=== PATIENT | male | born 1965 | race Caucasian/White ===

== ENCOUNTER 2025-06-27 03:55 | Inpatient (IN) ==
--- NOTE | 2025-06-27 04:06 | Emergency Department Note ---
Impression & Plan ST elevation (STEMI) myocardial infarction to the Visor Installer with Dr. Johnson admit to the [facility] Hospitalist ED Provider Note NAME: KEAGAN DEL ROSARIO Sr AGE: 59 SEX: Male INFORMANT: Patient ED PROVIDER(S): Maria G Woo DO CHIEF COMPLAINT: left-sided chest pain-STEMI PLAN: Disposition: to the [facility] with Dr. Johnson MEDICAL DECISION MAKING: This is a 59-year-old male patient who developed left-sided chest pain which woke him from sleep. The pain began to radiate up the left side of his neck and into his left arm. Presented to [facility] emergency department where they diagnosed a STEMI. They had initially plan to transfer the patient to [facility] but due to the weather, they were unable to fly. Due to the close proximity to our Visor Installer, they made arrangements to have the patient transferred here by speaking with me and Dr. Johnson. Patient received oral aspirin, IV morphine and nitroglycerin paste was placed. He was started on a heparin drip. Upon presentation to the emergency department Here as a heart alert, the patient continues to have ST segment elevation in the inferior leads with reciprocal changes. He rates his discomfort as a 4/10. a complete history and physical was performed. patient remained hemodynamically stable. Portable chest x-ray was performed which showed a narrow mediastinum and no acute pulmonary abnormality. Laboratory studies revealed no leukocytosis or anemia. Glucose was normal. Renal function was normal. Lipase was slightly elevated at 170 and troponin is still pending. Care/management discussed with: Dr. Johnson in the associate manager affiliate marketing as well as the [facility] Triage Nursing notes: reviewed and agree with them. Vital Signs: reviewed and remarkable for hypertension Additional History obtained from: transferring ALS crew Prior/ Outside/ External records reviewed: I did review the patient's records in [facility] as well as other previous visits here to our hospital. Differential Diagnosis: STEMI, NSTEMI, aortic dissection Diagnostics, independently interpreted by me: ECG: normal sinus rhythm at a rate of [address] segment elevation in leads II, 3, aVF. The patient has ST segment depression in lead aVL. There is no ectopy. Cardiac Monitoring: Normal sinus rhythm at a rate of 93 Imaging studies: portable chest x-ray: Narrow mediastinum with no obvious pneumothorax or pulmonary pathology as per my independent interpretation. HPI: 59 year old Male arrives for evaluation of Left-sided chest pain. patient who developed left-sided chest pain which woke him from sleep. The pain began to radiate up the left side of his neck and into his left arm. Presented to [facility] emergency department where they diagnosed a STEMI. They had initially plan to transfer the patient to [facility] but due to the weather, they were unable to fly. Due to the close proximity to our Visor Installer, they made arrangements to have the patient transferred here by speaking with me and Dr. Johnson. Patient received oral aspirin, IV morphine and nitroglycerin paste was placed. He was started on a heparin drip. PAST MEDICAL HISTORY: See Below, PAST SURGICAL HISTORY: See Below, SOCIAL HISTORY: See Below, HOME MEDICATIONS: see list ALLERGIES: see list VITALS: See Below PHYSICAL EXAMINATION: HEENT: Head - normocephalic and atraumatic. Pupils are equal, round, and reactive to light. Extraocular eye muscles are intact, and sclera are anicteric. Nose - moist nasal mucosa without discharge. Mouth - moist buccal mucosa. Oropharynx is nonerythematous and there is no tonsillar exudate or edema noted. Neck: Supple; no JVD Or cervical lymphadenopathy Heart: Regular rate and rhythm. There is a normal S1 and S2 with no murmurs, clicks, or gallops appreciated. Lungs: Clear to auscultation bilaterally with no wheezes, rales, or rhonchi. Abdomen: Soft, completely nontender, nondistended, with good bowel sounds. There are no palpable pulsatile masses or hepatosplenomegaly. There is no guarding, rigidity, or rebound noted. Extremities: No evidence of cyanosis, clubbing, or edema. There are easily palpable peripheral pulses. Skin: warm and dry with good turgor and no rashes. Emergency Department course: The patient was evaluated in room A-1 as a heart alert. A complete history and physical was performed. I looked through the records from [facility]. I discussed the case at the bedside with Dr. Johnson. An order was placed for continuous cardiac monitoring. The patient was in a normal sinus rhythm at a rate of 93. Twelve-lead EKG was obtained which showed evidence of a STEMI. Patient rated his pain as a 4/10. Laboratory studies were drawn. Portable chest x-ray was obtained. I discussed the case with the [facility] Hospitalist. He will go to the Visor Installer with Dr. Johnson I have personally spent greater than 30 minutes of critical care time in the direct management of this patient. This includes bedside care, interpretation of diagnostic studies, and testing, discussion with consultants, patient, and family members, and other required patient management activities. This 30 minutes is in excess of all separately billable procedures. I discussed the findings and plan with the patient. Past Med/Surg History Problem List ST elevation (STEMI) myocardial infarction (Acute) Abdominal pain Eczema Elevated blood sugar HTN (hypertension) Nicotine dependence with current use Thoracic and lumbosacral neuritis (Chronic) Status post lumbar surgery (Chronic) Smokes 1/2 pack per day (Chronic) Myalgia (Chronic) Lumbar radiculopathy (Chronic) Hyperlipidemia (Chronic) Gastritis (Chronic) Elevated serum creatinine (Chronic) Medical History Carpal tunnel syndrome Surgical History History of arthroscopy of knee History of carpal tunnel release History of back surgery Family History Mother Cancer UTERUS Coronary heart disease Hypertension Myocardial infarction Stroke Grandfather Colonic polyp Coronary heart disease Diabetes Myocardial infarction Stroke Father , AGE 41 Coronary heart disease Myocardial infarction Sudden MASSIVE HEARTATTACK Denies family history of Rheumatoid arthritis SIDS (sudden infant syndrome) Ovarian cancer Prostate cancer Deep vein thrombosis Osteoporosis Cerebral aneurysm Alzheimer disease Bipolar disorder Clotting disorder Crohn's disease Dementia Depression Heart disease Kidney disease Osteoarthritis Breast cancer Schizophrenia Congenital kidney disease Gestational diabetes Lung cancer COPD (chronic obstructive pulmonary disease) Colorectal cancer Pulmonary embolism Lung disease Ulcerative colitis Asthma Cystic kidney disease Social History Smoking Status: Current every day smoker Tobacco Type: Cigarettes Age Started Using Tobacco: 13; packs per day: 0.5; Cigarettes Per Day: 1/2 pack per day; Second Hand Exposure: Yes; Do You Dip or Chew Tobacco: No; Hx Alcohol Use: No Hx Substance Use: No Preferred Language: Zambian Communication Ability: Effective Visual Impairment: No Limitations Hearing Ability: Normal Blow Pit Operator Required: No Beliefs That Will Affect Care: None marital status: Current Living Situation: Spouse and Family Current Living Situation Comment: , 2 CHILDREN current occupational status: employed current occupation: [employer] Other Information That Helps Us Care for You: No Feels Safe at Home: Yes Safety Concerns: Feels Safe At This Time Childhood Exposure to Second-Hand Smoke: Yes caffeine: Yes Dental Care, Regularly: No Physical Activity Frequency: Daily Seatbelt Use: always Sunscreen Use: No Assistive Devices: Glasses Allergies Allergies Allergy/AdvReac Type Severity Reaction Status Date / Time naproxen Allergy Verified 03/22/25 08:26 rofecoxib [From Vioxx] Allergy Verified 03/22/25 08:26 tomato Allergy Verified 03/22/25 08:26 Home Meds Previous Rx's Medication Instructions Recorded albuterol sulfate 90 mcg/actuation 2 puff inhalation QID PRN 05/04/24 aerosol inhaler (Ventolin HFA) shortness of breath #6.7 grams omega-3 acid ethyl esters 1 gram 1 cap PO DAILY #90 caps 11/04/24 capsule ondansetron 4 mg disintegrating 4 mg PO Q8H PRN nausea and 11/08/24 tablet vomiting #10 tabs cyclobenzaprine 10 mg tablet 10 mg PO BID #60 tabs 11/09/24 fexofenadine 180 mg tablet 180 mg PO DAILY #90 tabs 11/09/24 ([facility]) triamcinolone acetonide 0.1 % 1 applic topical BID #30 grams 11/09/24 topical cream lisinopril 5 mg tablet 5 mg PO DAILY #90 tabs 12/09/24 pantoprazole 40 mg tablet,delayed 40 mg PO BID #180 tabs 02/01/25 release fenofibrate nanocrystallized 48 mg 48 mg PO DAILY #90 tabs 02/24/25 tablet etodolac 400 mg tablet (Lodine) 400 mg PO ONCE #60 tabs 05/09/25 lorazepam 0.5 mg tablet 0.5 mg PO TID PRN anxiety #90 tabs 05/10/25 hydrocodone 5 mg-acetaminophen 325 1 tab PO Q6H PRN pain #60 tabs 06/10/25 mg tablet Results & Data (ED) Vital Signs Vital Signs - 24 hr 06/27/25 03:52 06/27/25 03:57 06/27/25 04:02 Temperature 36.8 C Temperature Source Oral Pulse Rate 91 H 93 H Pulse Rate [Apical] Pulse Rate [Finger] Pulse Rhythm [Apical] Pulse Strength [Apical] Respiratory Rate 16 Respiratory Effort / Characteristics Non-Labored Spontaneous Respiratory Depth Normal Respiratory Pattern Regular Blood Pressure 144/108 H Blood Pressure [Left Arm] Blood Pressure Mean 120 Blood Pressure Mean [Left Arm] Blood Pressure Position [Left Arm] Pulse Oximetry 97 Oxygen Delivery Method Room Air Room Air Sepsis Recent Fever Within 48 Hours No Sepsis New/Unexplained Change in Mental Status No Sepsis Action Taken by Nursing No Action Required 06/27/25 04:02 06/27/25 05:20 06/27/25 05:31 Temperature 36.6 C Temperature Source Oral Pulse Rate Pulse Rate [Apical] 85 Pulse Rate [Finger] 86 Pulse Rhythm [Apical] Regular Pulse Strength [Apical] Normal Respiratory Rate 20 15 Respiratory Effort / Characteristics Non-Labored Spontaneous Non-Labored Spontaneous Respiratory Depth Normal Normal Respiratory Pattern Regular Blood Pressure Blood Pressure [Left Arm] 133/96 129/98 Blood Pressure Mean Blood Pressure Mean [Left Arm] 108 108 Blood Pressure Position [Left Arm] Lying Pulse Oximetry 97 97 97 Oxygen Delivery Method Room Air Room Air Room Air Sepsis Recent Fever Within 48 Hours Sepsis New/Unexplained Change in Mental Status Sepsis Action Taken by Nursing Laboratory Data 06/27/25 06:02 06/27/25 04:10 Lab Results 06/27/25 06/27/25 06/27/25 Range/Units 04:10 04:12 04:29 WBC RBC Hgb POC Hgb 14.6 (14.0-18.0) g/dl Hct POC Hct 43 (42-52) % MCV MCH MCHC RDW Std Deviation RDW Coeff of Bailee Plt Count MPV Immature Gran % (Auto) Neut % (Auto) Lymph % (Auto) [place] % (Auto) Eos % (Auto) Baso % (Auto) Neut # (Auto) Lymph # (Auto) [place] # (Auto) Eos # (Auto) Baso # (Auto) Immature Gran # (Auto) Absolute Nucleated RBC Nucleated RBC % (auto) Neutrophils % (Manual) Band Neutrophils % Lymphocytes % (Manual) Prolymphocyte % Reactive Lymphs % (Man) Monocytes % (Manual) Eosinophils % (Manual) Basophils % (Manual) Metamyelocytes % (Man) Myelocytes % (Man) Promyelocytes % (Man) Blast Cells % (Manual) Plasma Cell % (Manual) Other Cells % Nucleated RBC % Neutrophils # (Manual) Band Neutrophils # Total Absolute Neuts Lymphocytes # (Manual) Prolymphocyte # Reactive Lymphs # Total Abs Lymphocytes Monocytes # (Manual) Eosinophils # (Manual) Basophils # (Manual) Metamyelocytes # (Man) Myelocytes # (Manual) Promyelocytes # (Man) Blast Cells # (Man) Plasma Cell # (Manual) Other Cells # Nucleated RBCs # (Man) Hypersegmented Neuts Hyposegmented Neuts Hypogranular Neuts Large Granular Lymphs # Lrg Granular Lymphs Hairy Cells Smudge Cells Toxic Granulation Toxic Vacuolation Dohle Bodies Irma Rods Platelet Estimate Hypogranular Platelets Giant Platelets Platelet Satelliting RBC Morphology Polychromasia Hypochromasia Poikilocytosis Basophilic Stippling Anisocytosis Microcytosis Macrocytosis Spherocytes Pappenheimer Bodies Sickle Cells Target Cells Tear Drop Cells Ovalocytes Stomatocytes Allred-Woodston Bodies Echinocytes Acanthocytes (Spur) Rouleaux RBC Agglutinates Schistocytes Sezary Cell Activ Coag Time Kaolin 164 H (94-140) SECONDS POC Sodium 135 (135-144) mmol/L Sodium 134 L (136-145) mmol/L POC Potassium 4.0 (3.3-5.0) mmol/L Potassium 3.8 (3.5-5.1) mmol/L POC Chloride 100 L (101-112) mmol/L Chloride 98 (98-107) mmol/L Carbon Dioxide 28 (21-32) mmol/L POC Total CO2 27 (24-31) mmol/L Anion Gap 8 (3-11) POC Anion Gap 14.0 L (16-25) mmol/L POC BUN 15 (7-18) mg/dl BUN 15 (6-23) mg/dl Creatinine 1.35 (0.6-1.4) mg/dl POC Creatinine 1.5 H (0.6-1.3) mg/dl Est Cr Clr Drug Dosing 58.6 ml/min eGFR 61.24 BUN/Creatinine Ratio 11.1 (10-20) Glucose 108 H (70-99(Fasting)) mg/dl POC Glucose (other) 104 H (70-99) mg/dl Calcium 9.0 (8.6-10.3) mg/dl POC Ioniz Calcium Rigo 1.09 L (1.12-1.32) mmol/l Magnesium 1.8 (1.7-2.4) mg/dl Total Bilirubin 0.4 (0.2-1.0) mg/dl AST 23 (13-39) U/L ALT 16 (7-52) U/L Alkaline Phosphatase 32 L (34-104) U/L Total Creatine Kinase 166 (30-223) U/L Troponin I High Sens 497.6 H* (0-20) pg/ml Total Protein 6.8 (6.0-8.3) gm/dl Albumin 3.8 (3.4-5.0) gm/dl Globulin 3.0 (2.5-4.0) gm/dl Albumin/Globulin Ratio 1.3 (0.9-2) Lipase 170 H (11-82) U/L TSH 3.658 (0.300-4.500) uIu/ml Blood Parasites ID 06/27/25 06/27/25 06/27/25 Range/Units 04:50 05:00 05:15 WBC Cancelled RBC Cancelled Hgb Cancelled POC Hgb (14.0-18.0) g/dl Hct Cancelled POC Hct (42-52) % MCV Cancelled MCH Cancelled MCHC Cancelled RDW Std Deviation Cancelled RDW Coeff of Bailee Cancelled Plt Count Cancelled MPV Cancelled Immature Gran % (Auto) Cancelled Neut % (Auto) Cancelled Lymph % (Auto) Cancelled [place] % (Auto) Cancelled Eos % (Auto) Cancelled Baso % (Auto) Cancelled Neut # (Auto) Cancelled Lymph # (Auto) Cancelled [place] # (Auto) Cancelled Eos # (Auto) Cancelled Baso # (Auto) Cancelled Immature Gran # (Auto) Cancelled Absolute Nucleated RBC Cancelled Nucleated RBC % (auto) Cancelled Neutrophils % (Manual) Cancelled Band Neutrophils % Cancelled Lymphocytes % (Manual) Cancelled Prolymphocyte % Cancelled Reactive Lymphs % (Man) Cancelled Monocytes % (Manual) Cancelled Eosinophils % (Manual) Cancelled Basophils % (Manual) Cancelled Metamyelocytes % (Man) Cancelled Myelocytes % (Man) Cancelled Promyelocytes % (Man) Cancelled Blast Cells % (Manual) Cancelled Plasma Cell % (Manual) Cancelled Other Cells % Cancelled Nucleated RBC % Cancelled Neutrophils # (Manual) Cancelled Band Neutrophils # Cancelled Total Absolute Neuts Cancelled Lymphocytes # (Manual) Cancelled Prolymphocyte # Cancelled Reactive Lymphs # Cancelled Total Abs Lymphocytes Cancelled Monocytes # (Manual) Cancelled Eosinophils # (Manual) Cancelled Basophils # (Manual) Cancelled Metamyelocytes # (Man) Cancelled Myelocytes # (Manual) Cancelled Promyelocytes # (Man) Cancelled Blast Cells # (Man) Cancelled Plasma Cell # (Manual) Cancelled Other Cells # Cancelled Nucleated RBCs # (Man) Cancelled Hypersegmented Neuts Cancelled Hyposegmented Neuts Cancelled Hypogranular Neuts Cancelled Large Granular Lymphs Cancelled # Lrg Granular Lymphs Cancelled Hairy Cells Cancelled Smudge Cells Cancelled Toxic Granulation Cancelled Toxic Vacuolation Cancelled Dohle Bodies Cancelled Irma Rods Cancelled Platelet Estimate Cancelled Hypogranular Platelets Cancelled Giant Platelets Cancelled Platelet Satelliting Cancelled RBC Morphology Cancelled Polychromasia Cancelled Hypochromasia Cancelled Poikilocytosis Cancelled Basophilic Stippling Cancelled Anisocytosis Cancelled Microcytosis Cancelled Macrocytosis Cancelled Spherocytes Cancelled Pappenheimer Bodies Cancelled Sickle Cells Cancelled Target Cells Cancelled Tear Drop Cells Cancelled Ovalocytes Cancelled Stomatocytes Cancelled Allred-Woodston Bodies Cancelled Echinocytes Cancelled Acanthocytes (Spur) Cancelled Rouleaux Cancelled RBC Agglutinates Cancelled Schistocytes Cancelled Sezary Cell Cancelled Activ Coag Time Kaolin 308 H 245 H (94-140) SECONDS POC Sodium (135-144) mmol/L Sodium (136-145) mmol/L POC Potassium (3.3-5.0) mmol/L Potassium (3.5-5.1) mmol/L POC Chloride (101-112) mmol/L Chloride (98-107) mmol/L Carbon Dioxide (21-32) mmol/L POC Total CO2 (24-31) mmol/L Anion Gap (3-11) POC Anion Gap (16-25) mmol/L POC BUN (7-18) mg/dl BUN (6-23) mg/dl Creatinine (0.6-1.4) mg/dl POC Creatinine (0.6-1.3) mg/dl Est Cr Clr Drug Dosing ml/min eGFR BUN/Creatinine Ratio (10-20) Glucose (70-99(Fasting)) mg/dl POC Glucose (other) (70-99) mg/dl Calcium (8.6-10.3) mg/dl POC Ioniz Calcium Rigo (1.12-1.32) mmol/l Magnesium (1.7-2.4) mg/dl Total Bilirubin (0.2-1.0) mg/dl AST (13-39) U/L ALT (7-52) U/L Alkaline Phosphatase (34-104) U/L Total Creatine Kinase (30-223) U/L Troponin I High Sens (0-20) pg/ml Total Protein (6.0-8.3) gm/dl Albumin (3.4-5.0) gm/dl Globulin (2.5-4.0) gm/dl Albumin/Globulin Ratio (0.9-2) Lipase (11-82) U/L TSH (0.300-4.500) uIu/ml Blood Parasites ID Cancelled Administered Medications Sodium Chloride (Nss) 1,000 mls @ 75 mls/hr IV .[id number] URBANO Stop: 06/30/25 05:14 Last Admin: 06/27/25 05:50 Dose: 75 mls/hr Documented By: GIANNI Discontinued Medications Atropine Sulfate (Atropine Sulfate 0.1 Mg/Ml 10ml Syr) Confirm Administered Dose 1 mg IV .STK-MED ONE Stop: 06/27/25 05:17 Last Admin: 06/27/25 06:28 Dose: 0.5 mg Documented By: RADHA Fentanyl Citrate (Fentanyl Citrate Pf 100 Mcg/2 Ml Vial) Confirm Administered Dose 100 mcg .ROUTE .STK-MED ONE Stop: 06/27/25 03:53 Last Increment: 06/27/25 05:12 Dose: 50 mcg Documented By: RADHA Heparin Sodium (Porcine) (Heparin (Porcine) 1000 Unit/Ml 10 Ml (Visor Installer Use Only)) Confirm Administered Dose 10,000 units .ROUTE .STK-MED ONE Stop: 06/27/25 03:52 Last Admin: 06/27/25 05:11 Dose: 8,000 units Documented By: RADHA Heparin Sodium/Sodium Chloride (Heparin In Nss Infusion 1000 Unit/500 Ml (2 U/Ml) Bag) Confirm Administered Dose 3,000 units IV .STK-MED ONE Stop: 06/27/25 03:53 Last Admin: 06/27/25 05:12 Dose: 3,000 units Documented By: RADHA Ioversol (Optiray 350) Confirm Administered Dose 1 ml .ROUTE .STK-MED ONE Stop: 06/27/25 03:53 Last Admin: 06/27/25 05:12 Dose: 180 ml Documented By: RADHA Midazolam HCl (Midazolam Hcl 1 Mg/Ml 2ml Vial) Confirm Administered Dose 2 mg .ROUTE .STK-MED ONE Stop: 06/27/25 03:52 Last Increment: 06/27/25 05:12 Dose: 1 mg Documented By: RADHA Nitroglycerin/Dextrose (Nitroglycerin/D5w 100mcg/Ml 20ml Syr) Confirm Administered Dose 2,000 mcg .ROUTE .STK-MED ONE Stop: 06/27/25 03:53 Last Admin: 06/27/25 05:13 Dose: 2,000 mcg Documented By: RADHA Imaging Data Radiologist's Impression: Chest X-Ray 06/27/25 04:02 EXAM: XR chest 1V portable CLINICAL HISTORY: Chest pain, nonspecific. TECHNIQUE: An X-ray image of the chest is obtained in AP projection. COMPARISON: No prior studies are available for comparison. FINDINGS: Pulmonary Parenchyma: Lungs are clear bilaterally. No evidence of consolidation, collapse, or focal opacities. No pulmonary nodules are identified. No evidence of pleural effusion or pleural thickening. Heart and Mediastinum: Heart size and shape are normal. No mediastinal widening or masses. No hilar or mediastinal lymphadenopathy. Bony Thorax: Bony thorax appears intact without fractures or deformities. Soft Tissues: Soft tissues overlying the chest wall are unremarkable. IMPRESSION: No acute cardiopulmonary abnormalities are identified. Electronically signed by Shaan Wick 06-27-2025 05:03 AM Discharge Plan Visit Data Chief Complaint: Heart Alert Stated Complaint: HEART ALERT ED Provider: Maria G Woo Discharge Problem: ST elevation (STEMI) myocardial infarction Patient Disposition: Admitted As Inpatient Condition: Critical Discharge Instructions Interventions: ED Discharge Assessment Last Done: 06/27/25 04:18
--- NOTE | 2025-06-27 04:15 | Pre Anesthesia Assessment ---
Date of Service June 27, 2025 Pre Sedation Assessment Vital Signs Temp Pulse Resp BP Pulse Ox O2 Del Method 06/27/25 04:02 97 Room Air 06/27/25 04:02 Room Air 06/27/25 03:57 93 H 06/27/25 03:52 36.8 C 91 H 16 144/108 H 97 Room Air Cardiovascular RRR, no murmur, no edema Respiratory normal respiratory effort, lungs clear to auscultation Pre-Sedation Airway Assessment Smoking Status: Current every day smoker Mallampati 2 ASA 4 Notes The planned sedation has been discussed with the patient. Informed Consent was obtained. I have identified the patient, determined the appropriateness of sedation and have assessed the patient immediately prior to the procedure. All medicine(s) and interventions are by my order. [facility] Procedure Codes (Charges) Indication for Procedure Indication for procedure: ST elevation ID
--- NOTE | 2025-06-27 04:58 | History & Physical Report ---
Date of Service June 27, 2025 Assessment & Plan (1) ST elevation (STEMI) myocardial infarction: (2) HTN (hypertension): (3) Hyperlipidemia: (4) Nicotine dependence with current use: Plan 59-year-old male with history of hypertension, hyperlipidemia and ongoing tobacco use presenting from home after developing acute onset left-sided chest pain that woke him from sleep. Patient was initially seen in outside facility and diagnosed with an inferior ST elevated HI. Was transferred here for cardiac catheterization. Patient presented as a code heart. Had JUJU x 1 placed to distal RCA. Chest pain free at present #Inferior STEMI - s/p JUJU to RCA. -Admit to MICU -Trend troponin - initial troponin still pending at time of admission -Check 2D echo -Continue DAPT with ASA and Brillinta -Continue MetoprololMay want to change to metoprolol succinate versus carvedilol prior to discharge -Continue Lisinopril -Checking HgbA1C and Lipid Will need to initiate statin therapy prior to discharge #Hypertensionblood pressure well-controlled at present Continue metoprolol Continue lisinopril #Hyperlipidemiapatient on fenofibrate Check lipid panel Will need to initiate statin prior to discharge #Tobacco use Cessation counseling ordered #GERD Continue Protonix 40 mg p.o. twice daily History of Present Illness Chief Complaint: Chest pain Primary Care Provider: Tj Paiz DO Fadi Washington is a 59-year-old male with history of hypertension, hyperlipidemia and tobacco use presenting with acute onset of Left-sided chest pain that woke him from sleep at 00:30 this morning - pain radiated to the left neck and arm. Patient was seen at an outside facility in [place] and was diagnosed with an inferior ST elevated HI. He was administered aspirin, nitroglycerin and heparin drip and transferred here for cardiac catheterization. upon arrival, patient was found to have ST segment elevations in the inferior leads with reciprocal changes. He was brought to the [facility] and was found to have distal RCA occlusion status post drug-eluting stent x 1. Patient is now admitted to intensive care unit room 108. He denies chest pain at present. No additional complaints such as shortness of breath, palpitations, lightheadedness, abdominal pain He does report having some mild chest discomfort on the evening of 06/25 as well. Otherwise has not been having chest pain or shortness of breath prior to this event. Allergies Allergy/AdvReac Type Severity Reaction Status Date / Time naproxen Allergy Verified 03/22/25 08:26 rofecoxib [From Vioxx] Allergy Verified 03/22/25 08:26 tomato Allergy Verified 03/22/25 08:26 Home Medications Medication Instructions Recorded Confirmed Type albuterol sulfate 90 mcg/actuation 2 puff inhalation QID PRN 05/04/24 03/22/25 Rx aerosol inhaler (Ventolin HFA) shortness of breath #6.7 grams omega-3 acid ethyl esters 1 gram 1 cap PO DAILY #90 caps 11/04/24 03/22/25 Rx capsule ondansetron 4 mg disintegrating 4 mg PO Q8H PRN nausea and 11/08/24 03/22/25 Rx tablet vomiting #10 tabs cyclobenzaprine 10 mg tablet 10 mg PO BID #60 tabs 11/09/24 03/22/25 Rx fexofenadine 180 mg tablet 180 mg PO DAILY #90 tabs 11/09/24 03/22/25 Rx ([facility]) triamcinolone acetonide 0.1 % 1 applic topical BID #30 grams 11/09/24 03/22/25 Rx topical cream lisinopril 5 mg tablet 5 mg PO DAILY #90 tabs 12/09/24 03/22/25 Rx pantoprazole 40 mg tablet,delayed 40 mg PO BID #180 tabs 02/01/25 03/22/25 Rx release fenofibrate nanocrystallized 48 mg 48 mg PO DAILY #90 tabs 02/24/25 03/22/25 Rx tablet etodolac 400 mg tablet (Lodine) 400 mg PO ONCE #60 tabs 05/09/25 Rx lorazepam 0.5 mg tablet 0.5 mg PO TID PRN anxiety #90 tabs 05/10/25 Rx hydrocodone 5 mg-acetaminophen 325 1 tab PO Q6H PRN pain #60 tabs 06/10/25 Rx mg tablet Past Med/Surg History Problem List ST elevation (STEMI) myocardial infarction (Acute) Abdominal pain Eczema Elevated blood sugar HTN (hypertension) Nicotine dependence with current use Thoracic and lumbosacral neuritis (Chronic) Status post lumbar surgery (Chronic) Smokes 1/2 pack per day (Chronic) Myalgia (Chronic) Lumbar radiculopathy (Chronic) Hyperlipidemia (Chronic) Gastritis (Chronic) Elevated serum creatinine (Chronic) Medical History Carpal tunnel syndrome Surgical History History of arthroscopy of knee History of carpal tunnel release History of back surgery Family History Mother Cancer UTERUS Coronary heart disease Hypertension Myocardial infarction Stroke Grandfather Colonic polyp Coronary heart disease Diabetes Myocardial infarction Stroke Father , AGE 41 Coronary heart disease Myocardial infarction Sudden MASSIVE HEARTATTACK Denies family history of Rheumatoid arthritis SIDS (sudden syndrome) Ovarian cancer Prostate cancer Deep vein thrombosis Osteoporosis Cerebral aneurysm Alzheimer disease Bipolar disorder Clotting disorder Crohn's disease Dementia Depression Heart disease Kidney disease Osteoarthritis Breast cancer Schizophrenia Congenital kidney disease Gestational diabetes Lung cancer COPD (chronic obstructive pulmonary disease) Colorectal cancer Pulmonary embolism Lung disease Ulcerative colitis Asthma Cystic kidney disease Social History Smoking Status: Current every day smoker Tobacco Type: Cigarettes Age Started Using Tobacco: 13; packs per day: 0.5; Cigarettes Per Day: 10; Second Hand Exposure: Yes; Do You Dip or Chew Tobacco: No; Hx Alcohol Use: No Hx Substance Use: No Preferred Language: Irish Communication Ability: Effective Visual Impairment: No Limitations Hearing Ability: Normal Erosion Control Specialist Required: No Beliefs That Will Affect Care: None marital status: Current Living Situation: Family Current Living Situation Comment: , 2 CHILDREN current occupational status: employed current occupation: [employer] Feels Safe at Home: Yes Childhood Exposure to Second-Hand Smoke: Yes caffeine: Yes Dental Care, Regularly: No Physical Activity Frequency: Daily Seatbelt Use: always Sunscreen Use: No Review of Systems Review of Systems: All systems reviewed & are unremarkable except as noted in HPI & below Physical Exam Physical Exam: General: patient resting comfortably, NAD, non-toxic in appearance, AA&O x 4 Skin: warm, dry, intact, no rashes or lesions HEENT: NC/AT, PERRL, EOMI, anicteric sclera, conjunctiva without injection, external ear normal to inspection and nontender, nares patent, moist mucus membranes, dentition intact, no oropharyngeal lesions, neck supple, trachea midline, no LAD, no thyromegaly, no JVD Heart: +S1/S2, regular, no m/r/g Lungs: equal air entry bilaterally, no rales/rhonchi/wheezes Abd: +BS, soft, NT/ND, no masses/organomegaly/ascites Ext: warm, 2+ pulses in UE/LE bilaterally, no clubbing/cyanosis or edema, right radial artery occlusion band in place, Neuro: nonfocal, patient AA&O x 4, speech intact, no facial droop, moving all extremities on command with equal strength 5/5 Results & Data Results & Data Vital Signs (Past 12 Hours) Vital Signs Temp Pulse Resp BP Pulse Ox O2 Del Method 06/27/25 04:02 97 Room Air 06/27/25 04:02 Room Air 06/27/25 03:57 93 H 06/27/25 03:52 36.8 C 91 H 16 144/108 H 97 Room Air Laboratory Results Laboratory Results WBC Cancelled 06/27/25 05:00 RBC Cancelled 06/27/25 05:00 Hgb Cancelled 06/27/25 05:00 POC Hgb 14.6 g/dl (14.0-18.0) 06/27/25 04:12 Hct Cancelled 06/27/25 05:00 POC Hct 43 % (42-52) 06/27/25 04:12 MCV Cancelled 06/27/25 05:00 MCH Cancelled 06/27/25 05:00 MCHC Cancelled 06/27/25 05:00 RDW Std Deviation Cancelled 06/27/25 05:00 RDW Coeff of Bailee Cancelled 06/27/25 05:00 Plt Count Cancelled 06/27/25 05:00 MPV Cancelled 06/27/25 05:00 Immature Gran % (Auto) Cancelled 06/27/25 05:00 Neut % (Auto) Cancelled 06/27/25 05:00 Lymph % (Auto) Cancelled 06/27/25 05:00 [place] % (Auto) Cancelled 06/27/25 05:00 Eos % (Auto) Cancelled 06/27/25 05:00 Baso % (Auto) Cancelled 06/27/25 05:00 Neut # (Auto) Cancelled 06/27/25 05:00 Lymph # (Auto) Cancelled 06/27/25 05:00 [place] # (Auto) Cancelled 06/27/25 05:00 Eos # (Auto) Cancelled 06/27/25 05:00 Baso # (Auto) Cancelled 06/27/25 05:00 Immature Gran # (Auto) Cancelled 06/27/25 05:00 Absolute Nucleated RBC Cancelled 06/27/25 05:00 Nucleated RBC % (auto) Cancelled 06/27/25 05:00 Neutrophils % (Manual) Cancelled 06/27/25 05:00 Band Neutrophils % Cancelled 06/27/25 05:00 Lymphocytes % (Manual) Cancelled 06/27/25 05:00 Prolymphocyte % Cancelled 06/27/25 05:00 Reactive Lymphs % (Man) Cancelled 06/27/25 05:00 Monocytes % (Manual) Cancelled 06/27/25 05:00 Eosinophils % (Manual) Cancelled 06/27/25 05:00 Basophils % (Manual) Cancelled 06/27/25 05:00 Metamyelocytes % (Man) Cancelled 06/27/25 05:00 Myelocytes % (Man) Cancelled 06/27/25 05:00 Promyelocytes % (Man) Cancelled 06/27/25 05:00 Blast Cells % (Manual) Cancelled 06/27/25 05:00 Plasma Cell % (Manual) Cancelled 06/27/25 05:00 Other Cells % Cancelled 06/27/25 05:00 Nucleated RBC % Cancelled 06/27/25 05:00 Neutrophils # (Manual) Cancelled 06/27/25 05:00 Band Neutrophils # Cancelled 06/27/25 05:00 Total Absolute Neuts Cancelled 06/27/25 05:00 Lymphocytes # (Manual) Cancelled 06/27/25 05:00 Prolymphocyte # Cancelled 06/27/25 05:00 Reactive Lymphs # Cancelled 06/27/25 05:00 Total Abs Lymphocytes Cancelled 06/27/25 05:00 Monocytes # (Manual) Cancelled 06/27/25 05:00 Eosinophils # (Manual) Cancelled 06/27/25 05:00 Basophils # (Manual) Cancelled 06/27/25 05:00 Metamyelocytes # (Man) Cancelled 06/27/25 05:00 Myelocytes # (Manual) Cancelled 06/27/25 05:00 Promyelocytes # (Man) Cancelled 06/27/25 05:00 Blast Cells # (Man) Cancelled 06/27/25 05:00 Plasma Cell # (Manual) Cancelled 06/27/25 05:00 Other Cells # Cancelled 06/27/25 05:00 Nucleated RBCs # (Man) Cancelled 06/27/25 05:00 Hypersegmented Neuts Cancelled 06/27/25 05:00 Hyposegmented Neuts Cancelled 06/27/25 05:00 Hypogranular Neuts Cancelled 06/27/25 05:00 Large Granular Lymphs Cancelled 06/27/25 05:00 # Lrg Granular Lymphs Cancelled 06/27/25 05:00 Hairy Cells Cancelled 06/27/25 05:00 Smudge Cells Cancelled 06/27/25 05:00 Toxic Granulation Cancelled 06/27/25 05:00 Toxic Vacuolation Cancelled 06/27/25 05:00 Dohle Bodies Cancelled 06/27/25 05:00 Irma Rods Cancelled 06/27/25 05:00 Platelet Estimate Cancelled 06/27/25 05:00 Hypogranular Platelets Cancelled 06/27/25 05:00 Giant Platelets Cancelled 06/27/25 05:00 Platelet Satelliting Cancelled 06/27/25 05:00 RBC Morphology Cancelled 06/27/25 05:00 Polychromasia Cancelled 06/27/25 05:00 Hypochromasia Cancelled 06/27/25 05:00 Poikilocytosis Cancelled 06/27/25 05:00 Basophilic Stippling Cancelled 06/27/25 05:00 Anisocytosis Cancelled 06/27/25 05:00 Microcytosis Cancelled 06/27/25 05:00 Macrocytosis Cancelled 06/27/25 05:00 Spherocytes Cancelled 06/27/25 05:00 Pappenheimer Bodies Cancelled 06/27/25 05:00 Sickle Cells Cancelled 06/27/25 05:00 Target Cells Cancelled 06/27/25 05:00 Tear Drop Cells Cancelled 06/27/25 05:00 Ovalocytes Cancelled 06/27/25 05:00 Stomatocytes Cancelled 06/27/25 05:00 Allred-Donegal Bodies Cancelled 06/27/25 05:00 Echinocytes Cancelled 06/27/25 05:00 Acanthocytes (Spur) Cancelled 06/27/25 05:00 Rouleaux Cancelled 06/27/25 05:00 RBC Agglutinates Cancelled 06/27/25 05:00 Schistocytes Cancelled 06/27/25 05:00 Sezary Cell Cancelled 06/27/25 05:00 Activ Coag Time Kaolin 245 SECONDS (94-140) H 06/27/25 05:15 POC Sodium 135 mmol/L (135-144) 06/27/25 04:12 Sodium 134 mmol/L (136-145) L 06/27/25 04:10 POC Potassium 4.0 mmol/L (3.3-5.0) 06/27/25 04:12 Potassium 3.8 mmol/L (3.5-5.1) 06/27/25 04:10 POC Chloride 100 mmol/L (101-112) L 06/27/25 04:12 Chloride 98 mmol/L (98-107) 06/27/25 04:10 Carbon Dioxide 28 mmol/L (21-32) 06/27/25 04:10 POC Total CO2 27 mmol/L (24-31) 06/27/25 04:12 Anion Gap 8 (3-11) 06/27/25 04:10 POC Anion Gap 14.0 mmol/L (16-25) L 06/27/25 04:12 POC BUN 15 mg/dl (7-18) 06/27/25 04:12 BUN 15 mg/dl (6-23) 06/27/25 04:10 Creatinine 1.35 mg/dl (0.6-1.4) 06/27/25 04:10 POC Creatinine 1.5 mg/dl (0.6-1.3) H 06/27/25 04:12 Est Cr Clr Drug Dosing 58.6 ml/min 06/27/25 04:10 eGFR 61.24 06/27/25 04:10 BUN/Creatinine Ratio 11.1 (10-20) 06/27/25 04:10 Glucose 108 mg/dl (70-99(Fasting)) H 06/27/25 04:10 POC Glucose (other) 104 mg/dl (70-99) H 06/27/25 04:12 Calcium 9.0 mg/dl (8.6-10.3) 06/27/25 04:10 POC Ioniz Calcium [place] 1.09 mmol/l (1.12-1.32) L 06/27/25 04:12 Magnesium 1.8 mg/dl (1.7-2.4) 06/27/25 04:10 Total Bilirubin 0.4 mg/dl (0.2-1.0) 06/27/25 04:10 AST 23 U/L (13-39) 06/27/25 04:10 ALT 16 U/L (7-52) 06/27/25 04:10 Alkaline Phosphatase 32 U/L (34-104) L 06/27/25 04:10 Total Creatine Kinase 166 U/L (30-223) 06/27/25 04:10 Total Protein 6.8 gm/dl (6.0-8.3) 06/27/25 04:10 Albumin 3.8 gm/dl (3.4-5.0) 06/27/25 04:10 Globulin 3.0 gm/dl (2.5-4.0) 06/27/25 04:10 Albumin/Globulin Ratio 1.3 (0.9-2) 06/27/25 04:10 Lipase 170 U/L (11-82) H 06/27/25 04:10 TSH 3.658 uIu/ml (0.300-4.500) 06/27/25 04:10 Blood Parasites ID Cancelled 06/27/25 05:00 Impressions Chest X-Ray 06/27/25 04:02 EXAM: XR chest 1V portable CLINICAL HISTORY: Chest pain, nonspecific. TECHNIQUE: An X-ray image of the chest is obtained in AP projection. COMPARISON: No prior studies are available for comparison. FINDINGS: Pulmonary Parenchyma: Lungs are clear bilaterally. No evidence of consolidation, collapse, or focal opacities. No pulmonary nodules are identified. No evidence of pleural effusion or pleural thickening. Heart and Mediastinum: Heart size and shape are normal. No mediastinal widening or masses. No hilar or mediastinal lymphadenopathy. Bony Thorax: Bony thorax appears intact without fractures or deformities. Soft Tissues: Soft tissues overlying the chest wall are unremarkable. IMPRESSION: No acute cardiopulmonary abnormalities are identified. Electronically signed by Shaan Wick 06-27-2025 05:03 AM PG Care Time/CCT Total # of Minutes Spent Total Time Spent with Patient: Total time spent is greater than 50% in coordination of care (as documented) at patient's floor/unit and/or counseling patient: Coding Level of Care Code 87394 INT INP/OBS CARE 3/75MIN Diagnoses ST elevation (STEMI) myocardial infarction I21.3 HTN (hypertension) I10 Hyperlipidemia E78.5 Nicotine dependence with current use F17.200
[2025-06-27 05:02] LABS: Alanine Aminotransferase 16.0 U/L (7-52); Albumin Globulin Ratio 1.3 (0.9-2); Albumin Level 3.8 gm/dl (3.4-5.0); Alkaline Phosphatase 32.0 U/L (34-104); Anion Gap 8.0 (3-11); Bilirubin,Total 0.4 mg/dl (0.2-1.0); Blood Urea Nitrogen 15.0 mg/dl (6-23); Calcium 9.0 mg/dl (8.6-10.3); Carbon Dioxide 28.0 mmol/L (21-32); Chloride 98.0 mmol/L (98-107); Creatine Kinase 166.0 U/L (30-223); Creatinine Clr Calc Pharmacy 58.6 ml/min; Globulin 3.0 gm/dl (2.5-4.0); Glucose 108.0 mg/dl (70-99(Fasting)); Lipase 170.0 U/L (11-82); Magnesium 1.8 mg/dl (1.7-2.4); Potassium 3.8 mmol/L (3.5-5.1); Sodium 134.0 mmol/L (136-145); Total Protein 6.8 gm/dl (6.0-8.3)
--- NOTE | 2025-06-27 05:03 | XRay Report ---
EXAM: XR chest 1V portable CLINICAL HISTORY: Chest pain, nonspecific. TECHNIQUE: An X-ray image of the chest is obtained in AP projection. COMPARISON: No prior studies are available for comparison. FINDINGS: Pulmonary Parenchyma: Lungs are clear bilaterally. No evidence of consolidation, collapse, or focal opacities. No pulmonary nodules are identified. No evidence of pleural effusion or pleural thickening. Heart and Mediastinum: Heart size and shape are normal. No mediastinal widening or masses. No hilar or mediastinal lymphadenopathy. Bony Thorax: Bony thorax appears intact without fractures or deformities. Soft Tissues: Soft tissues overlying the chest wall are unremarkable. IMPRESSION: No acute cardiopulmonary abnormalities are identified. Electronically signed by Shaan Wick 06-27-2025 05:03 AM
[2025-06-27] MEDS: HEPARIN (PORCINE) 1000 UNIT/ML 10 ML (CATH LAB USE ONLY) ONE (05:11)
[2025-06-27] MEDS: OPTIRAY 350 ONE (05:12)
[2025-06-27] MEDS: MIDAZOLAM HCL 1 MG/ML 2ML VIAL ONE (05:12)
[2025-06-27] MEDS: NITROGLYCERIN/D5W 100MCG/ML 20ML SYR ONE (05:13)
[2025-06-27] MEDS ORDERED: ACETAMINOPHEN 325 MG TAB PO PRN (05:15)
[2025-06-27] MEDS ORDERED: ATROPINE SULFATE 0.1 MG/ML 10ML SYR IV PRN (05:15)
[2025-06-27] MEDS ORDERED: ONDANSETRON INJ 2 MG/ML 2 ML VIAL IV PRN (05:15)
--- NOTE | 2025-06-27 05:15 | Post Anesthesia Assessment ---
Date of Service June 27, 2025 Post Sedation Assessment Vital Signs Temp Pulse Resp BP Pulse Ox O2 Del Method 06/27/25 04:02 97 Room Air 06/27/25 04:02 Room Air 06/27/25 03:57 93 H 06/27/25 03:52 36.8 C 91 H 16 144/108 H 97 Room Air Recovery Score Activity: Moves 4 extremities Respiration: Deep Breath/Cough Circulation: +/-20% PreAnes Value Consciousness: Fully Awake Oxygen Saturation: > 92% On Room Air Discharge Sedation Level of Care: Fast Track Phase II Post Sedation Plan On clinical assessment, the patient appears to have tolerated the sedation without complications. Patient is recovering as anticipated. Patient will continue to be monitored by nursing and may be discharged when sedation discharge criteria are met per below protocol. Upon Completions of procedure up to 15 minutes continue every 5 minute vital signs and the P.A.R. score; then discharge to a Phase I or Fast Track to Phase II per the following guidelines: * Discharge Patient to appropriate Phase II area if PAR is 8 or greater or return to pre- procedure baseline. The post - procedure orders will be as directed. * If PAR score is less than 8 or not return to pre-procedure baseline then patient will follow Phase I monitoring till PAR is reached for Phase II. The Phase I may be done in procedure room or may call to secure a Phase I area. * If naloxone or flumazenil are used for reversal, hold in Phase I for continued monitoring from when last reversal dose was given for a minimum of 60 minutes or longer pending the nurse and/or physician discretion of patient condition before discharge to Phase II. Please call the Sedation Physician to re-evaluate and complete post-note for discharge to Phase II area. Do NOT discharge from procedure sedation or Phase 1 until post- sedation evaluat ion note is complete by procedure /sedation MD Sedation Discharge Instructions to be given to the patient at discharge to home.
[2025-06-27 05:17] LABS: Thyroid Stimulating Hormone 3.658 uIu/ml (0.300-4.500)
--- NOTE | 2025-06-27 05:31 | Cardiac Catheterization ---
ACC Data: Economist Research Assistant Cardiac Status Clinical evaluation leading to the procedure CAD Presenation: STEMI Anginal Classification: CCS IV Heart Failure: No Cardiogenic Shock within 24 Hours: No Cardiac Arrest within 24 Hours: No Imaging Studies Past 6 Months: No Stress Studies Past 6 Months: No STEMI OR Non-STEMI Symptom Onset Date: 06/27/25 Symptom Onset Time: 00:15 Thrombolytics: No Coronary Anatomy Dominant: Right Left Main (% Stenosis): Distal (30-40%) LAD (% Stenosis): Normal (Mild scattered 20 to 30%) D1 (% Stenosis): Normal Circumflex (% Stenosis): Normal OM1 (% Stenosis): Normal OM2 (% Stenosis): Normal RCA (% Stenosis): Mid (100 %) Ramus (% Stenosis): Ostial (30%) and Proximal (30%) Diagnostic Physicians Name: Alexi Johnson MD, PhD Closure Device Percutaneous Entry Location: Radial Closure Device: Radial Band Recommendations: Medical Therapy and/or Counseling and PCI without planned CABG PCI Indication: PCI for STEMI - Stable First Noted: First EKG Lesion Segment Name: mid and distal RCA Culprit Artery: Yes Stenosis Prior to Rx (%): 100% Chronic Total Occlusion: No Pre-Procedure KARINA Flow: 0 Previously Treated Lesion: No Lesion Complexity: Non-High/Non-C Lesion Length (mm): 42 Thrombus Present: Yes Bifurcation Lesion: Yes Guidewire Across Lesion: Yes Intraprocedure Events Significant Disection: No Perforation: No Cardiac Cath Procedure Full Procedure Date June 27, 2025 Pre-Procedure Diagnosis Pre-Procedure Diagnosis: STEMI AUC Score AUC Score: 09 Post-Procedure Diagnosis Post-Procedure Diagnosis: Severe CAD and Successful PCI Procedure(s) Performed Procedure(s) Performed: Coronary Angiography and Drug Eluting Stent [place] Commissioner Alexi Johnson MD, PhD Estimated Blood Loss Estimated Blood Loss: 10 cc Medication(s) Medication(s): Atropine, Fentanyl, Heparin, Lidocaine 1%, Nicardipine and Versed Summary of Findings Brief description: Patient was brought to the cardiac catheterization suite where he was shaved and prepped in a sterile fashion. Sedated using IV Versed and fentanyl. Soft tissues of the right wrist were anesthetized using 2 mL of 1% Xylocaine. The right radial artery was accessed using a modified Seldinger technique and a 6 [place] radial artery glide sheath was placed. Patient was provided antispasmodics with nicardipine. ACT was checked and additional heparin was provided. This was repeated multiple times throughout the case to ensure therapeutic anticoagulation. All catheters were advanced and exchanged over a 0.035 J-tip wire. Right coronary angiography in orthogonal views with a 6 [place] JR 4.0 guide catheter. Left coronary angiography was performed with a 5 [place] JL 3.5 diagnostic catheter. This was performed after completion of PCI. PCI was undertaken with the JR4 guide catheter and a regional airline pilot 50 guidewire was advanced and positioned distally in the RCA. Predilatation with 2.0 x 12 mm trek balloon x 2 inflations up to 10 ancelmo. Patient developed bradycardia and was therefore provided IV atropine. The regional airline pilot wire was exchanged for a BMW universal guidewire. Predilatation with a 2.5 x 50 mm trek balloon with 2 inflations to 8 ancelmo and 1 inflation to 14 ancelmo. Balloon removed. A 2.5 x 18 mm Fred JUJU was advanced and positioned across the more distal aspect of the lesion. This was deployed at 14 ancelmo. After stent balloon removal a 2.75 x 15 mm Fred JUJU was advanced and positioned with its distal edge overlapped with the proximal portion of the first stent. This was then deployed at 13 ancelmo. Stent balloon removed. Resident Program Specialist angiography was performed. A 3.0 x 8 mm NC Barron balloon was advanced and positioned within the proximal to midportion of the proximal stent. Postdilatation up to 14 ancelmo. Balloon repositioned so that it was contained just within the proximal edge of the stent and this was postdilated to 18 ancelmo. A 2.0 x 15 mm [place] drug-eluting stent was then advanced over the wire and this was positioned distal to the distal stent in an overlap fashion. Stent deployed at 12 ancelmo. Stent balloon then deflated and positioned across the overlap segment where it was inflated to 18 ancelmo. Stent balloon removed. NC Barron 2.5 x 12 mm balloon was then advanced over the wire and postdilatation was performed in the overlap segment at 16 ancelmo. Balloon was removed. Guidewire was removed and final angiographic evaluation was performed. Guide catheter was removed. We then completed left coronary angiography with the 5 [place] JL 3.5 diagnostic catheter. Radial artery sheath was removed. Hemostasis was obtained using the TR band. Patient was hemodynamically stable and asymptomatic. He was returned to the recovery area. Plan for admission to the ICU. This ended the case. Coronary angiography findings: [id number] short vessel. Trifurcates into LAD, ramus, and circumflex. Distal up to 30-40% stenosis. LAD-large caliber transapical. The proximal of the distal vessel has scattered less than 20 to 30% stenosis. LAD provides a large branching first diagonal which has mild luminal irregularities. Ramus-medium to large caliber. There is an ostial 30% stenosis and the proximal segment has less than 30% stenosis. LCx-medium to large and nondominant. First branch is an atrial branch. The AV groove vessel becomes smaller after the first OM1 and continues to taper as it terminates distally. Circumflex provides small to medium caliber OM1 and OM 2. There is no more than mild luminal irregularities in the circumflex and its branches. RCA-large caliber and dominant vessel. Proximal diffuse irregularities. The mid segment is then 100% with a preceding tubular stenosis. There is KARINA 0 flow. This is the culprit for inferior ST elevation KS. PCI of RCA-0% residual stenosis after implantation of 3 overlapped drug-eluting stents beginning in the early mid vessel and extending through the distal vessel. KARINA-3 flow post PCI No evidence of dissection or perforation post PCI Summary: 1. Severe RCA stenosis with acute thrombotic occlusion as culprit for inferior ST elevation KS. 2. Mild nonocclusive coronary disease in the left coronary system. 3. Successful PCI with implantation of 3 overlapped drug-eluting stents in the RCA. 4. Dual antiplatelet therapy with aspirin 81 mg daily and Brilinta 90 mg p.o. twice daily for up to 1-2 years. 5. Guideline directed medical therapy for secondary prevention of coronary disease to include; low-dose aspirin, high intensity statin therapy, beta- alexandra, plus or minus SAVITA inhibitor/ARB. Hemodynamics Rest Ao:: 135/84 mm Hg Final Ao: 126/90 mm Hg LV: not performed Recommendations Recommendations: Medical Therapy and/or Counseling and PCI without planned CABG Radiation Exposure (mGy) 969 mGy, flouro time 16.5 min Contrast (mls) 180 ml Anesthesia 1 mg Versed, 50 mcg Fentanyl. Start 0423, end 510 Procedural Complication(s) None Disposition ICU I attest to the content of the Intraoperative Record and any orders documented therein. Any exceptions are noted below. [facility] Card Cath Procedure Codes Cardiac Catheterization Procedure 1: Cardiovascular Cath Procedures: 05705 Coronaries Moderate Sedation Procedure 1: Sedation/Anesthesia: 97685 Mod Sedation by the same physician;Init15 Min Child Age 5 & Up (initial 15 min, start 0423) Procedure 2: Sedation/Anesthesia: 84299 Mod Sedation by the same physician; Ea [id number] Minutes (additional 33 min, end 0511) Stenting Procedure 1: Cardiovascular Stent Procedures: 60978 Perc transluminal revascularization of acute sub/total occl, aMI (RCA) PG Care Time/CCT Total # of Minutes Spent Total Time Spent with Patient: Total time spent is greater than 50% in coordination of care (as documented) at patient's floor/unit and/or counseling patient:
[2025-06-27] MEDS: ATROPINE SULFATE 0.1 MG/ML 10ML SYR IV ONE (05:50)
[2025-06-27] MEDS: SODIUM CHLORIDE 0.9% 1,000 ML IV SCH (05:50)
[2025-06-27 06:24] LABS: Hematocrit (blood only) 42.3 % (42.0-52.0); Hemoglobin 14.1 g/dl (14.0-18.0); Immature Granulocytes # (auto) 0.03 K/uL (0.01-0.20); Immature Granulocytes % (auto) 0.4 %; Mean Corpuscular Hemoglobin 29.1 pg (25.0-34.0); Mean Corpuscular Volume 87.2 fL (80.0-100.0); Platelet Count 300 K/uL (130-400); RDW Standard Deviation 40.3 fL (36.4-46.3); Red Blood Count 4.85 M/uL (4.70-6.10); White Blood Count 7.43 K/ul (4.8-10.8)
--- NOTE | 2025-06-27 06:28 | Critical Care Consultation ---
Date of Consultation June 27, 2025 Assessment & Plan (1) ST elevation (STEMI) myocardial infarction: (2) HTN (hypertension): (3) Hyperlipidemia: (4) Nicotine dependence with current use: Plan Reason Critically Ill: 1. Tobacco use disorder 2. CAD 3. STEMI s/p JUJU x1 to RCA Neuro - CAM ICU: Negative RASS GOAL 0 APAP PRN pain/fever Cardiac - Cardiology consultation MAP goal > 65mmHg Start BB, statin, DAPT Post-procedure EKG pending Troponin trended TTE ordered Follow up lipid panel and A1c Respiratory - No acute concerns SpO2 goal > 92% If patient has not had screening CT chest this should be accomplished as outpatient Smoking cessation encouraged IS/Flutter GI - Diet: Advance as tolerated, heart healthy SUP: Home Rx Bowel regimen: Ambulate, start PRN RENAL/LYTES - Replete electrolytes as indicated Bladder scan and straight cath PRN Maintain net even to net negative Gentle IVF until taking adequate PO ENDO - A1c pending BG 140-180 per SCCM guidelines ISS if needed while inpatient HEME - Admit labs pending Standard transfusion goals ID - No acute concerns LINES/TUBES/DRAINS - PIV x2 DVT PROPHYLAXIS - Start today I have personally spent 35 minutes of critical care time in the direct management of this patient. This is a life/limb threatening event. This includes time spent evaluating patient, direct bedside care, chart review, placing orders, interpretation of diagnostic studies, discussion with consultants, patient, and family members, as well as other required patient management activities. This time is exclusive of all separately billable procedures, and teaching time and separate from and in addition to any other critical care service time. Thank you for allowing us to participate in the care of this patient. Please refer to my attending physician's documentation for any further recommendations. History of Present Illness Reason for Consultation: STEMI Requesting Physician: Judah Attending Physician: Garo Breen MD History of Present Illness Mr. Fadi Washington Sr is a pleasant 59YOM with a history of HTN/HLD, tobacco use disorder, GERD who presented to [facility] as a transfer from [facility]. Patient presented to [facility] early this AM due to sudden onset chest pain that woke him from sleep. Pain radiating to left jaw. Found to have inferior wall STEMI on EKG. Received ASA load, nitroglycerin, and started on heparin infusion prior to transfer to [facility] for cardiac catheterization. Underwent LHC with JUJU x1 to 100% mid-distal RCA lesion. KARINA [] flow post-stent. Awaiting cath report to determine degree of existing CAD. Patient is seen post-operatively in ICU 108. He is AAOx3, com fortable appearing, AF, mildly hypertensive. No chest pain at this time. Saturating well on room air. Of note, patient does have a family history of early CAD. 10-point ROS reviewed and negative unless noted above. Allergies Allergy/AdvReac Type Severity Reaction Status Date / Time naproxen Allergy Verified 03/22/25 08:26 rofecoxib [From Vioxx] Allergy Verified 03/22/25 08:26 tomato Allergy Verified 03/22/25 08:26 Home Medications Medication Instructions Recorded Confirmed Type albuterol sulfate 90 mcg/actuation 2 puff inhalation QID PRN 05/04/24 03/22/25 Rx aerosol inhaler (Ventolin HFA) shortness of breath #6.7 grams omega-3 acid ethyl esters 1 gram 1 cap PO DAILY #90 caps 11/04/24 03/22/25 Rx capsule ondansetron 4 mg disintegrating 4 mg PO Q8H PRN nausea and 11/08/24 03/22/25 Rx tablet vomiting #10 tabs cyclobenzaprine 10 mg tablet 10 mg PO BID #60 tabs 11/09/24 03/22/25 Rx fexofenadine 180 mg tablet 180 mg PO DAILY #90 tabs 11/09/24 03/22/25 Rx ([facility]) triamcinolone acetonide 0.1 % 1 applic topical BID #30 grams 11/09/24 03/22/25 Rx topical cream lisinopril 5 mg tablet 5 mg PO DAILY #90 tabs 12/09/24 03/22/25 Rx pantoprazole 40 mg tablet,delayed 40 mg PO BID #180 tabs 02/01/25 03/22/25 Rx release fenofibrate nanocrystallized 48 mg 48 mg PO DAILY #90 tabs 02/24/25 03/22/25 Rx tablet etodolac 400 mg tablet (Lodine) 400 mg PO ONCE #60 tabs 05/09/25 Rx lorazepam 0.5 mg tablet 0.5 mg PO TID PRN anxiety #90 tabs 05/10/25 Rx hydrocodone 5 mg-acetaminophen 325 1 tab PO Q6H PRN pain #60 tabs 06/10/25 Rx mg tablet Patient History Medical History Carpal tunnel syndrome Surgical History History of arthroscopy of knee History of carpal tunnel release History of back surgery Family History Mother Cancer UTERUS Coronary heart disease Hypertension Myocardial infarction Stroke Grandfather Colonic polyp Coronary heart disease Diabetes Myocardial infarction Stroke Father , AGE 41 Coronary heart disease Myocardial infarction Sudden MASSIVE HEARTATTACK Denies family history of Rheumatoid arthritis SIDS (sudden infant syndrome) Ovarian cancer Prostate cancer Deep vein thrombosis Osteoporosis Cerebral aneurysm Alzheimer disease Bipolar disorder Clotting disorder Crohn's disease Dementia Depression Heart disease Kidney disease Osteoarthritis Breast cancer Schizophrenia Congenital kidney disease Gestational diabetes Lung cancer COPD (chronic obstructive pulmonary disease) Colorectal cancer Pulmonary embolism Lung disease Ulcerative colitis Asthma Cystic kidney disease Social History Smoking Status: Current every day smoker Tobacco Type: Cigarettes Age Started Using Tobacco: 13; packs per day: 0.5; Cigarettes Per Day: 1/2 pack per day; Second Hand Exposure: Yes; Do You Dip or Chew Tobacco: No; Hx Alcohol Use: No Hx Substance Use: No Preferred Language: Spanish Communication Ability: Effective Visual Impairment: No Limitations Hearing Ability: Normal Relief Mate Required: No Beliefs That Will Affect Care: None marital status: Current Living Situation: Spouse and Family Current Living Situation Comment: , 2 CHILDREN current occupational status: employed current occupation: [employer] (formerly [employer]) Other Information That Helps Us Care for You: No Feels Safe at Home: Yes Safety Concerns: Feels Safe At This Time Childhood Exposure to Second-Hand Smoke: Yes caffeine: Yes Dental Care, Regularly: No Physical Activity Frequency: Daily Seatbelt Use: always Sunscreen Use: No Assistive Devices: Glasses Review of Systems Review of Systems: All systems reviewed & are unremarkable except as noted in Subjective Physical Exam Constitutional: WD/WN, vitals as above Eyes: PERRL, conjunctivae normal, anicteric sclerae ENMT: external ear and nose normal, oropharynx normal Neck: trachea midline, no thyromegaly Respiratory: normal respiratory effort, lungs clear to auscultation Cardiovascular: RRR, no murmur, no edema Gastrointestinal (Abdomen): normal bowel sounds, soft, nontender, no hepatosplenomegaly Musculoskeletal: no cyanosis or clubbing, extremities motor strength 5/5 Skin: no rashes, warm and dry Radial band in place, hemostatic with good peripheral perfusion Neurologic: PERRL, EOMI, accommodation nl, no face palsy, no dysarthria Results & Data Results & Data Vital Signs (Past 12 Hours) Vital Signs Temp Pulse Pulse Pulse Resp BP BP 06/27/25 06:01 84 20 152/98 H 06/27/25 05:46 86 17 135/96 06/27/25 05:36 06/27/25 05:36 06/27/25 05:31 85 15 129/98 06/27/25 05:20 36.6 C 86 20 133/96 06/27/25 04:02 06/27/25 04:02 06/27/25 03:57 93 H 06/27/25 03:52 36.8 C 91 H 16 144/108 H Pulse Ox Pulse Ox O2 Del Method O2 Del Method 06/27/25 06:01 98 Room Air 06/27/25 05:46 98 Room Air 06/27/25 05:36 Room Air 06/27/25 05:36 99 Room Air 06/27/25 05:31 97 Room Air 06/27/25 05:20 97 Room Air 06/27/25 04:02 97 Room Air 06/27/25 04:02 Room Air 06/27/25 03:57 06/27/25 03:52 97 Room Air Laboratory Results Reviewed Diagnostic Findings Reviewed Medications Administered See MAR Coding Level of Care Code 68487 IN/OBS CONSULT LVL 2,35M Diagnoses ST elevation (STEMI) myocardial infarction I21.3 HTN (hypertension) I10 Hyperlipidemia E78.5 Nicotine dependence with current use F17.200 Time Spent (min) 35
--- NOTE | 2025-06-27 06:49 | Electrocardiogram Report ---
Test Reason : Blood Pressure : */* mmHG Vent. Rate : 87 BPM Atrial Rate : 87 BPM P-R Int : 138 ms QRS Dur : 88 ms QT Int : 336 ms P-R-T Axes : 74 66 89 degrees QTcB Int : 404 ms Normal sinus rhythm Inferior infarct , possibly acute ACUTE OR / STEMI Consider right ventricular involvement in acute inferior infarct Abnormal ECG No previous ECGs available Confirmed by Adam Mcclelland ([id number]) on 06/27/2025 6:48:57 AM Referred By: REFERRED SELF Confirmed By: Adam Mcclelland
--- NOTE | 2025-06-27 06:50 | Electrocardiogram Report ---
Test Reason : Blood Pressure : */* mmHG Vent. Rate : 88 BPM Atrial Rate : 88 BPM P-R Int : 138 ms QRS Dur : 88 ms QT Int : 356 ms P-R-T Axes : 72 59 86 degrees QTcB Int : 430 ms Normal sinus rhythm Cannot rule out Inferior infarct (cited on or before 27-Jun-2025) ST elevation, consider acute inferior infarct, STEMI Abnormal ECG When compared with ECG of 27-Jun-2025 03:56, No significant change was found Confirmed by Adam Mcclelland ([id number]) on 06/27/2025 6:49:33 AM Referred By: REFERRED SELF Confirmed By: Adam Mcclelland
[2025-06-27 06:54] LABS: Cholesterol 246.0 mg/dl (0-200); HDL Cholesterol 39.0 mg/dl; Triglycerides 69.0 mg/dl (0-150)
[2025-06-27 07:12] LABS: INR 1.1 (0.9-1.1); Prothrombin Time 11.5 Seconds (9.0-12.0)
[2025-06-27] MEDS ORDERED: METOPROLOL TARTRATE 1 MG/ML VIAL IV PRN (07:13)
--- NOTE | 2025-06-27 07:14 | Hospitalist Progress Note ---
Date of Service June 27, 2025 Assessment & Plan (1) ST elevation (STEMI) myocardial infarction: (2) HTN (hypertension): (3) Hyperlipidemia: (4) Nicotine dependence with current use: Plan 59-year-old male with history of hypertension, hyperlipidemia and ongoing tobacco use presenting from home after developing acute onset left-sided chest pain that woke him from sleep. Patient was initially seen in outside facility and diagnosed with an inferior ST elevated NV. Was transferred here for cardiac catheterization. Patient presented as a code heart. Had JUJU x 1 placed to distal RCA. Chest pain free at present #Inferior STEMI - s/p JUJU to RCA. -Trend troponin - initial troponin still pending at time of admission - Pending 2D echo -Continue DAPT with ASA and Brillinta -Continue MetoprololMay want to change to metoprolol succinate versus carve dilol prior to discharge -Continue Lisinopril - Hemoglobin A1c is 6.0 patient already has a Spartan diet will continue to follow, total cholesterol 246 LDL 193 HDL 39 guideline based medical statin th erapy #Hypertensionblood pressure well-controlled at present Continue metoprolol Continue lisinopril #Hyperlipidemiapatient on fenofibrate Check lipid panel Will need to initiate statin prior to discharge #Tobacco use Cessation counseling ordered, this seems to be difficult for the patient #GERD Continue Protonix 40 mg p.o. twice daily Admission and Anticipated Discharge Date Admission Date: June 27, 2025 Subjective Patient resting comfortably. He has no pain at his right wrist cath access site. He said no additional chest pain or shortness of breath. Physical Exam Physical Exam: Pleasant gentleman laying flat in bed no signs of heart failure No JVD card exam is regular Right wrist is without discomfort he has good distal capillary refill and sensation Lung exam is clear. Results & Data Results & Data Vital Signs (Past 12 Hours) Vital Signs Temp Pulse Pulse Pulse Resp BP BP 06/27/25 06:31 82 18 142/103 H 06/27/25 06:01 84 20 152/98 H 06/27/25 05:46 86 17 135/96 06/27/25 05:36 06/27/25 05:36 06/27/25 05:31 85 15 129/98 06/27/25 05:20 97.9 F 86 20 133/96 06/27/25 04:02 06/27/25 04:02 06/27/25 03:57 93 H 06/27/25 03:52 98.2 F 91 H 16 144/108 H Pulse Ox Pulse Ox O2 Del Method O2 Del Method 06/27/25 06:31 98 Room Air 06/27/25 06:01 98 Room Air 06/27/25 05:46 98 Room Air 06/27/25 05:36 Room Air 06/27/25 05:36 99 Room Air 06/27/25 05:31 97 Room Air 06/27/25 05:20 97 Room Air 06/27/25 04:02 97 Room Air 06/27/25 04:02 Room Air 06/27/25 03:57 06/27/25 03:52 97 Room Air Laboratory Results Reviewed CBC reviewed chemistry reviewed troponin 30,000 post procedure Reviewed hemoglobin A1c 6.0 PG Care Time/CCT Total # of Minutes Spent Total Time Spent with Patient: Total time spent is greater than 50% in coordination of care (as documented) at patient's floor/unit and/or counseling patient: Coding Level of Care Code 47846 SUB INP/OBS CARE 3/50MIN Diagnoses ST elevation (STEMI) myocardial infarction I21.3 HTN (hypertension) I10 Hyperlipidemia E78.5 Nicotine dependence with current use F17.200
[2025-06-27 07:15] LABS: Partial Thromboplastin Time > 139 Seconds (21-31)
[2025-06-27 08:24] LABS: Hemoglobin A1C 6.0 % (4.5-5.6)
[2025-06-27] MEDS: METOPROLOL TARTRATE 25 MG TAB PO SCH (08:52)
[2025-06-27] MEDS: ASPIRIN 81 MG ECTAB PO SCH (08:52)
[2025-06-27] MEDS: POTASSIUM CHLORIDE CRTAB 20 MEQ TABCR PO STA (09:18)
[2025-06-27] MEDS: MAGNESIUM SULFATE / D5W 1 GM/100 ML BAG IV SCH (09:18)
[2025-06-27 20:37] LABS: Magnesium 2.3 mg/dl (1.7-2.4); Potassium 4.6 mmol/L (3.5-5.1)
[2025-06-27] MEDS: TICAGRELOR 90 MG TAB PO SCH (21:05)
[2025-06-27] MEDS: ICU ELECTROLYTE REPLACEMENT PROTOCOL SCH (21:06)
[2025-06-28 05:20] LABS: Hematocrit (blood only) 39.2 % (42.0-52.0); Hemoglobin 13.3 g/dl (14.0-18.0); Immature Granulocytes # (auto) 0.04 K/uL (0.01-0.20); Immature Granulocytes % (auto) 0.3 %; Mean Corpuscular Hemoglobin 29.1 pg (25.0-34.0); Mean Corpuscular Volume 85.8 fL (80.0-100.0); Platelet Count 298 K/uL (130-400); RDW Standard Deviation 39.6 fL (36.4-46.3); Red Blood Count 4.57 M/uL (4.70-6.10); White Blood Count 11.65 K/ul (4.8-10.8)
[2025-06-28 05:35] LABS: Anion Gap 6.0 (3-11); Blood Urea Nitrogen 14.0 mg/dl (6-23); Calcium 8.7 mg/dl (8.6-10.3); Carbon Dioxide 25.0 mmol/L (21-32); Chloride 105.0 mmol/L (98-107); Creatinine Clr Calc Pharmacy 63.0 ml/min; Glucose 117.0 mg/dl (70-99(Fasting)); Magnesium 2.0 mg/dl (1.7-2.4); Potassium 4.0 mmol/L (3.5-5.1); Sodium 136.0 mmol/L (136-145)
[2025-06-28] MEDS: ATORVASTATIN 40 MG TAB PO SCH (07:32)
--- NOTE | 2025-06-28 10:12 | XCELERA ---
[id number]
[2025-06-28 11:41] VITALS: TEMP 98.1
--- NOTE | 2025-06-28 11:58 | Cardiology Consultation ---
Date of Consultation June 28, 2025 Assessment & Plan (1) ST elevation (STEMI) myocardial infarction: Post PCI to occluded RCA with 3 overlapping drug-eluting stents No residual known culprit CAD 2. Preserved LV functioninferior/inferolateral hypokinesis 3. Hypertension 4. DyslipidemiaLDL 193 5. GERD 6. Tobacco abuse Doing well from a cardiac standpoint post PCI yesterday. No recurrent chest pain. Hemodynamically and electrically stable. No signs of heart failure on exam and no significant access site complications. From a cardiac standpoint okay with discharge today. Home on DAPT with aspirin, ticagrelor (favor ticagrelor in the setting of 3 overlapping stents). Continue current atorvastatin (previously intolerant to at least 2 prior statins, 1 of which was Crestor). Likely will need PCSK9 inhibitor to get to goal in the future. Continue current lisinopril, metoprolol On PPI We talked about potential cardiac rehab in the future. Stressed the importance of smoking cessation. Follow-up with cardiology, Dr. Johnson in 1 to 2 weeks potentially at [place]. History of Present Illness Attending Physician: Garo Breen MD History of Present Illness Mr. Washington is a very pleasant 59-year-old man who is post PCI for inferior STEMI yesterday. Past medical history significant for hypertension, dyslipidemia, GERD and ongoing tobacco use. Also with a history of back surgery. Has a significant family history of coronary artery disease. Presented emergently to ED yesterday after woken from sleep with acute chest pain. ECG showed inferior ST elevations taken emergently to [facility] where was found to have 100% mid LAD occlusion. Was treated with 3 overlapping drug- eluting stents with good angiographic result. No significant nonculprit CAD. Post procedure HS TropI peaked at 65,000. Repeat echo today showed EF 55% with basal to mid inferior, basal inferolateral hypokinesis. No significant valvular pathology. He has been hemodynamically and electrically stable. No recurrent chest pain and today feeling well. Labs at time of LA, LDL 193, A1c 6.0 Allergies Allergy/AdvReac Type Severity Reaction Status Date / Time naproxen Allergy Verified 03/22/25 08:26 rofecoxib [From Vioxx] Allergy Verified 03/22/25 08:26 tomato Allergy Verified 03/22/25 08:26 Home Medications Medication Instructions Recorded Confirmed Type albuterol sulfate 90 mcg/actuation 2 puff inhalation QID PRN 05/04/24 03/22/25 Rx aerosol inhaler (Ventolin HFA) shortness of breath #6.7 grams omega-3 acid ethyl esters 1 gram 1 cap PO DAILY #90 caps 11/04/24 03/22/25 Rx capsule ondansetron 4 mg disintegrating 4 mg PO Q8H PRN nausea and 11/08/24 03/22/25 Rx tablet vomiting #10 tabs cyclobenzaprine 10 mg tablet 10 mg PO BID #60 tabs 11/09/24 03/22/25 Rx fexofenadine 180 mg tablet 180 mg PO DAILY #90 tabs 11/09/24 03/22/25 Rx ([facility]) triamcinolone acetonide 0.1 % 1 applic topical BID #30 grams 11/09/24 03/22/25 Rx topical cream lisinopril 5 mg tablet 5 mg PO DAILY #90 tabs 12/09/24 03/22/25 Rx pantoprazole 40 mg tablet,delayed 40 mg PO BID #180 tabs 02/01/25 03/22/25 Rx release fenofibrate nanocrystallized 48 mg 48 mg PO DAILY #90 tabs 02/24/25 03/22/25 Rx tablet etodolac 400 mg tablet (Lodine) 400 mg PO ONCE #60 tabs 05/09/25 Rx lorazepam 0.5 mg tablet 0.5 mg PO TID PRN anxiety #90 tabs 05/10/25 Rx hydrocodone 5 mg-acetaminophen 325 1 tab PO Q6H PRN pain #60 tabs 06/10/25 Rx mg tablet Patient History Medical History Carpal tunnel syndrome Surgical History History of arthroscopy of knee History of carpal tunnel release History of back surgery Family History Mother Cancer UTERUS Coronary heart disease Hypertension Myocardial infarction Stroke Grandfather Colonic polyp Coronary heart disease Diabetes Myocardial infarction Stroke Father , AGE 41 Coronary heart disease Myocardial infarction Sudden MASSIVE HEARTATTACK Denies family history of Rheumatoid arthritis SIDS (sudden syndrome) Ovarian cancer Prostate cancer Deep vein thrombosis Osteoporosis Cerebral aneurysm Alzheimer disease Bipolar disorder Clotting disorder Crohn's disease Dementia Depression Heart disease Kidney disease Osteoarthritis Breast cancer Schizophrenia Congenital kidney disease Gestational diabetes Lung cancer COPD (chronic obstructive pulmonary disease) Colorectal cancer Pulmonary embolism Lung disease Ulcerative colitis Asthma Cystic kidney disease Social History Smoking Status: Current every day smoker Tobacco Type: Cigarettes Age Started Using Tobacco: 13; packs per day: 0.5; Cigarettes Per Day: 1/2 pack per day; Second Hand Exposure: Yes; Do You Dip or Chew Tobacco: No; Hx Alcohol Use: No Hx Substance Use: No Preferred Language: Arabic Communication Ability: Effective Visual Impairment: No Limitations Hearing Ability: Normal Senior Ux Designer Required: No Beliefs That Will Affect Care: None marital status: Current Living Situation: Spouse and Family Current Living Situation Comment: , 2 CHILDREN current occupational status: employed current occupation: [employer] Other Information That Helps Us Care for You: No Feels Safe at Home: Yes Safety Concerns: Feels Safe At This Time Childhood Exposure to Second-Hand Smoke: Yes caffeine: Yes Dental Care, Regularly: No Physical Activity Frequency: Daily Seatbelt Use: always Sunscreen Use: No Assistive Devices: None Review of Systems Review of Systems: All systems reviewed & are unremarkable except as noted in HPI & below Physical Exam Physical Exam: General: Comfortable HEENT: Sclerae anicteric Lungs: Clear to auscultation Cardiac: Regular rate and rhythm, no murmurs. Vascular: 2+ right radial. Mild hematoma/ecchymosis. Intact distal capillary refill Abdomen: Soft, nontender Extremities: Well perfused, no peripheral edema Neuro: Nonfocal Psych: Alert orient x3, normal affect and mood Results & Data Vital Signs (Past 12 Hours) Vital Signs Temp Pulse Pulse Resp BP BP Pulse Ox 06/28/25 11:40 98.1 F 85 17 135/91 96 06/28/25 07:48 95 H 06/28/25 07:17 98.6 F 89 24 133/93 96 06/28/25 04:00 75 21 96 06/28/25 04:00 132/80 06/28/25 02:12 84 19 96 06/28/25 01:00 123/86 06/28/25 00:42 78 23 96 06/28/25 00:15 85 20 96 06/28/25 00:00 143/74 H 06/27/25 23:48 75 23 96 O2 Del Method 06/28/25 11:40 Room Air 06/28/25 07:48 06/28/25 07:17 Room Air 06/28/25 04:00 06/28/25 04:00 06/28/25 02:12 06/28/25 01:00 06/28/25 00:42 06/28/25 00:15 06/28/25 00:00 06/27/25 23:48 PG Care Time/CCT Total # of Minutes Spent Total Time Spent with Patient: Total time spent is greater than 50% in coordination of care (as documented) at patient's floor/unit and/or counseling patient: Coding Level of Care Code 60245 INT INP/OBS CARE 2/55MIN Diagnoses ST elevation (STEMI) myocardial infarction I21.3
[2025-06-28 12:12] VITALS: BP 138/82; RESP 21; O2SAT 98
[2025-06-28 12:52] VITALS: PULSE 86
--- NOTE | 2025-06-28 13:38 | Discharge Summary ---
Discharge Summary Date of Service June 28, 2025 Principal Dx & Hospital Course #1 = Principal Diagnosis (1) ST elevation (STEMI) myocardial infarction: (2) HTN (hypertension): (3) Hyperlipidemia: (4) Nicotine dependence with current use: Plan 59-year-old male with history of hypertension, hyperlipidemia and ongoing tobacco use presenting from home after developing acute onset left-sided chest pain that woke him from sleep. Patient was initially seen in outside facility and diagnosed with an inferior ST elevated TX. Was transferred here for cardiac catheterization. Patient presented as a code heart. Had 3 overlapping JUJU placed to distal RCA. Chest pain free at present #Inferior STEMI - s/p JUJU to RCA. -Trend troponin - initial troponin still pending at time of admission - Echo shows preserved EF no RWMA -Continue DAPT with ASA and Brillinta -Continue Metoprololchange to succinate at discharge -Continue Lisinopril - Hemoglobin A1c is 6.0 patient already has a Spartan diet will continue to follow, total cholesterol 246 LDL 193 HDL 39 guideline based medical statin therapy, was statin intolerant in the past may consider PCSK9 inhibitor if not tolerant to statin #Hypertensionblood pressure well-controlled at present Continue metoprolol Continue lisinopril #Hyperlipidemiapatient on fenofibrate initiated statin prior to discharge #Tobacco use Cessation counseling offered #GERD protonix Notes For Next Care Provider asses tolerance of statin follow aic as outpt titrate metoprolol as able consider cardiac rehab referral Admission HPI Per Admitting Provider Fadi Washington is a 59-year-old male with history of hypertension, hyperlipidemia and tobacco use presenting with acute onset of Left-sided chest pain that woke him from sleep at 00:30 this morning - pain radiated to the left neck and arm. Patient was seen at an outside facility in [place] and was diagnosed with an inferior ST elevated TX. He was administered aspirin, nitroglycerin and heparin drip and transferred here for cardiac catheterization. upon arrival, patient was found to have ST segment elevations in the inferior leads with reciprocal changes. He was brought to [facility] and was found to have distal RCA occlusion status post drug-eluting 3 overlapping stents . Patient is now admitted to intensive care unit room 108. He denies chest pain at present. No additional complaints such as shortness of breath, palpitations, lightheadedness, abdominal pain He does report having some mild chest discomfort on the evening of 06/25 as well. Otherwise has not been having chest pain or shortness of breath prior to this event. Discharge Exam pleasant no distress cardiac is regular lungs are clear right hand with good distal sensation and strength Discharge Plan Discharge Items Patient Disposition: Home - Self-Care Reason For Visit: INFERIOR STEMI S/P JUJU PLACEMENT Discharge Diagnosis: inferior wall heart attack Condition on Discharge: Critical Activity: Per Instructions section Activity Comment: no work or intentional exercise until seen by cardiology Non-emergency contact: Primary Care Provider and Named Account Executive Call non-emergency contact if: your pain is not controlled Follow-up/Referrals: Alexi Johnson MD, PhD [Physician] - (Per scheduling, cardiology office will call Pt to schedule follow up appointment.) Tj Paiz DO [Primary Care Provider] - 07/05/25 1:30 pm Diet: Heart Healthy Addtl Attending Provider Instructions: ACTIVITY RECOMMENDATIONS: Excess manipulation of the wrist should be avoided for the next 24-48 hours. * No lifting over 2 pounds (approximately a 1/2 gallon of milk) with the utilized arm for 24 hours. * No strenuous activity such as bowling or tennis for 3 days. * Keep the site of the procedure covered with a bandage for 24 hours. *You may shower the day after the procedure. Do not take a tub bath or submerge the puncture site in water for the next 3 days. *Do not operate any motorized equipment for 3 days. SPECIAL CARE INSTRUCTIONS: The site may be slightly bruised and sore following your procedure. Should any of the following occur, contact the Dr. who performed your procedure. 1. Redness/inflammation, swelling, chills, or fever, or colored drainage at procedure site within 3-7 days after your procedure. 2. Coldness, discoloration, ongoing numbness, severe pain, or swelling. Expect mild tingling of hand and tenderness at the puncture site for up to three days. If this persists beyond three days, or other symptoms develop, notify the Dr. who performed your procedure. BLEEDING: If the procedure site on your wrist begins to bleed, do not panic 1. Place 1 or 2 fingers firmly just slightly above the insertion site to stop the bleeding. You may be able to feel your pulse as you hold pressure. 2. Lift your finger after 5 minutes to see if the bleeding has stopped. 3. Once the bleeding has stopped, gently wipe the wrist area clean with a bandage. * If the bleeding from your wrist does not stop after 10 minutes, or if there is a large amount of bleeding or spurting, call 911 (do not drive yourself to the hospital). SKIN IRRITATION: * You may experience some redness and/or swelling in the area where radiation was administered. If any skin irritation occurs, please contact your family physician. FOLLOW UP VISIT: Keep any scheduled doctor appointments. Stand-Alone Forms: My [facility], Smoking Cessation Medications and DC Order Prescriptions: New atorvastatin 40 mg Tablet 40 mg PO QAM Qty: 30 5RF ticagrelor [Brilinta] 90 mg Tablet 90 mg PO BID Qty: 60 5RF metoprolol succinate 50 mg tablet extended release 24 hr 50 mg PO DAILY Qty: 30 5RF aspirin 81 mg Tablet,Delayed Release (Dr/Ec) 81 mg PO QAM Qty: 30 5RF Continued omega-3 acid ethyl esters 1 gram capsule 1 cap PO DAILY Qty: 90 3RF ondansetron 4 mg tablet,disintegrating 4 mg PO Q8H PRN (Reason: nausea and vomiting) Qty: 10 0RF Rx Instructions: [facility] ER 3// lisinopril 5 mg tablet 5 mg PO DAILY Qty: 90 2RF pantoprazole 40 mg tablet,delayed release (DR/EC) 40 mg PO BID Qty: 180 1RF fenofibrate nanocrystallized 48 mg tablet 48 mg PO DAILY Qty: 90 1RF lorazepam 0.5 mg tablet 0.5 mg PO TID PRN (Reason: anxiety) Qty: 90 0RF hydrocodone-acetaminophen 5-325 mg tablet 1 tab PO Q6H PRN (Reason: pain) Qty: 60 0RF albuterol sulfate [Ventolin HFA] 90 mcg/actuation HFA aerosol inhaler 2 puff INH QID PRN (Reason: shortness of breath) Qty: 6.7 2RF fexofenadine [Kati Allergy] 180 mg tablet 180 mg PO DAILY Qty: 90 3RF cyclobenzaprine 10 mg tablet 10 mg PO BID Qty: 60 3RF triamcinolone acetonide 0.1 % cream 1 applic topical BID Qty: 30 2RF Discontinued etodolac [Lodine] 400 mg tablet 400 mg PO ONCE Qty: 60 5RF Discharge Orders: Discharge Order (Routine); Ordered 06/28/25 Ordered By: Garo Giles/Other Patient Handouts: Prediabetes, 5 Steps for Eating Healthier Admission Data Admit Date/Time: 06/27/25 05:36 Attending Provider: Garo Breen Admit Provider: Bobbi So Primary Care Provider: Tj Paiz Other Providers: Bobbi So; Kim Lozano Kip M.; Abdoulaye Jung; Alexi Johnson; Jason Hoffmann; Washington Muñiz Jr; Adam Mcclelland; Patsy Mcgraw; Alida Cage; Christiano Cisneros; Christiano Pandey; Latanya Dumont; Teddy García; Tressa Quintana; Teddy Wright; Mike Parrish; Santos Joyner; Lexa Sifuentes; Anurag Cruz; Charli Ferraro; Paula Alvarenga; Soniya Ceballos Other Interventions: Discharge Summary Assessment (RN) Last Done: 06/28/25 12:51 Hospital Stay Data Consultations 06/27/25 04:06 ED Decision to Admit Stat 06/27/25 05:21 Consult Cardiac Rehabilitation Routine 06/27/25 05:36 Consult Circular Shear Operator Routine 06/27/25 12:25 Consult Cardiology Routine Procedures Performed Operation Date: 06/27/25 04:00 Actual Procedures p Cineradiography w/Routine Exam - Alexi Johnson MD, PhD p Aspiration/PCI w/JUJU for Stemi - Alexi Johnson MD, PhD s Cath, Coronaries ONLY (no LV) - Alexi Johnson MD, PhD Diagnostic Imagining Performed 06/27/25 03:50 CL Cath Imgs for PACS use only Stat Discharge Instructions Given to Patient (Per Discharging Provider) ACTIVITY RECOMMENDATIONS: Excess manipulation of the wrist should be avoided for the next 24-48 hours. * No lifting over 2 pounds (approximately a 1/2 gallon of milk) with the utilized arm for 24 hours. * No strenuous activity such as bowling or tennis for 3 days. * Keep the site of the procedure covered with a bandage for 24 hours. *You may shower the day after the procedure. Do not take a tub bath or submerge the puncture site in water for the next 3 days. *Do not operate any motorized equipment for 3 days. SPECIAL CARE INSTRUCTIONS: The site may be slightly bruised and sore following your procedure. Should any of the following occur, contact the Dr. who performed your procedure. 1. Redness/inflammation, swelling, chills, or fever, or colored drainage at procedure site within 3-7 days after your procedure. 2. Coldness, discoloration, ongoing numbness, severe pain, or swelling. Expect mild tingling of hand and tenderness at the puncture site for up to three days. If this persists beyond three days, or other symptoms develop, notify the Dr. who performed your procedure. BLEEDING: If the procedure site on your wrist begins to bleed, do not panic 1. Place 1 or 2 fingers firmly just slightly above the insertion site to stop the bleeding. You may be able to feel your pulse as you hold pressure. 2. Lift your finger after 5 minutes to see if the bleeding has stopped. 3. Once the bleeding has stopped, gently wipe the wrist area clean with a bandage. * If the bleeding from your wrist does not stop after 10 minutes, or if there is a large amount of bleeding or spurting, call 911 (do not drive yourself to the hospital). SKIN IRRITATION: * You may experience some redness and/or swelling in the area where radiation was administered. If any skin irritation occurs, please contact your family physician. FOLLOW UP VISIT: Keep any scheduled doctor appointments. Total Time Total Time Spent Total Time Spent (In Minutes): I personally have spent greater than 30 minutes of time on the patient discharge today including review of tests, documentation, exam, and discussing treatment plan moving forward with the patient. Coding Level of Care Code 75921 INP/OBS DISCH >[address] elevation (STEMI) myocardial infarction I21.3 HTN (hypertension) I10 Hyperlipidemia E78.5 Nicotine dependence with current use F17.200
== END 2025-06-28 14:39 | disposition home or self-care (01) | DRG 322 ==
LOC: ED 03:55 → CC 04:16 → 1E 05:36 → SUATTDRO 05:36
PROC: CLB.CCO (2025-06-27 04:00)